=== PATIENT | female | born 1955 | race African-American/Black ===

== ENCOUNTER 2021-03-08 08:48 | Emergency (ER) | payer MEDICARE, OTHER ==
[~2021-03-08] VITALS: Ht 160 cm; Wt 71.0 kg
[2021-03-08] MEDS ORDERED: MORPHINE SULFATE 4 MG/ML CPJ (NOT FOR IM USE) IV STA (10:48)
[2021-03-08] MEDS ORDERED: MORPHINE SULFATE 2 MG/ML CPJ (NOT FOR IM USE) IV NR (11:15)
[2021-03-08 11:31] LABS: BASOPHILS % 0.6 % (0.0-2.0); EOSINOPHILS % 1.5 % (0.0-5.0); HEMOGLOBIN. 13.9 g/dL (12.0-16.0); LYMPHOCYTES % 20.3 % (20.0-50.0); MEAN CORPUSCULAR VOLUME 95.1 fL (81.0-99.0); MEAN PLATELET VOLUME 8.4 fl (7.4-10.4); MONOCYTES % 9.1 % (2.0-8.0); NEUTROPHILS % 68.5 % (40.0-76.0); PLATELET 322 x1000/uL (130-400); RED BLOOD CELL COUNT 4.21 mill/uL (4.2-5.4); RED CELL DISTRIBUTION WIDTH 13.6 % (11.6-14.6)
[2021-03-08 11:33] LABS: CLARITY URINE CLEAR (CLEAR); COLOR URINE YELLOW (YELLOW); KETONES URINE NEGATIVE (NEGATIVE); LEUKOCYTE ESTERASE URINE 1+ (NEGATIVE); NITRITE URINE NEGATIVE (NEGATIVE); OCCULT BLOOD URINE NEGATIVE (NEGATIVE); PROTEIN URINE NEGATIVE (NEGATIVE); SPECIFIC GRAVITY URINE 1.013 (1.005-1.030); UROBILINOGEN URINE 0.2 E.U./dL (0.2-1.0)
[2021-03-08 11:33] LABS: CHLORIDE 105 mEq/L (98-107)
[2021-03-08] MEDS ORDERED: AMOX-424 MT (12:09)
[2021-03-08 12:14] LABS: PROTHROMBIN TIME 10.9 sec (9.6-11.0)
[2021-03-08] MEDS ORDERED: TRAM50TA3 MT (12:49)
[2021-03-08 12:53] VITALS: BP 134/118
== END 2021-03-08 12:43 | disposition home or self-care (01) ==
LOC: ER 08:48
DX: K57.92 Diverticulitis of intestine, part unspecified, without perforation or abscess without bleeding (principal); L23.0 Allergic contact dermatitis due to metals
CPT/HCPCS: 36415; 74176; 80053; 81003; 83690; 85025; 85610; 96374; 99284; J2270

== ENCOUNTER 2021-03-20 13:52 | Emergency (ER) | payer MEDICARE ==
[~2021-03-20] VITALS: Ht 160 cm; Wt 71.0 kg
[~2021-03-20 13:52] MED LIST: AMOX-424 MT; TRAM50TA3 MT
[2021-03-20] MEDS ORDERED: KETOROLAC 60MG/2ML VIAL IM SCH (21:00)
[2021-03-20] MEDS ORDERED: SIMETHICONE 80MG TABLET CHEW PO PRN (21:15)
[2021-03-20] MEDS ORDERED: TRAMADOL 50MG TABLET PO ONE (22:00)
[2021-03-20 22:49] LABS: BASOPHILS % 1.2 % (0.0-2.0); EOSINOPHILS % 4.7 % (0.0-5.0); HEMATOCRIT. 35.7 % (36.0-48.0); HEMOGLOBIN. 12.8 g/dL (12.0-16.0); LYMPHOCYTES % 33.6 % (20.0-50.0); MEAN CORPUSCULAR HEMOGLOBIN 32.9 pg (28.0-32.0); MEAN CORPUSCULAR VOLUME 92.1 fL (81.0-99.0); MEAN PLATELET VOLUME 7.8 fl (7.4-10.4); MONOCYTES % 7.8 % (2.0-8.0); NEUTROPHILS % 52.7 % (40.0-76.0); PLATELET 360 x1000/uL (130-400); RED BLOOD CELL COUNT 3.87 mill/uL (4.2-5.4); RED CELL DISTRIBUTION WIDTH 13.8 % (11.6-14.6)
[2021-03-20] MEDS ORDERED: SIME80TA15 PO (23:23)
[2021-03-20] MEDS ORDERED: LEVO750T46 MT (23:23)
[2021-03-20] MEDS ORDERED: KETO10TA2 MT (23:23)
[2021-03-20 23:46] VITALS: BP 124/77
== END 2021-03-20 23:46 | disposition home or self-care (01) ==
LOC: ER 14:29
DX: R10.30 Lower abdominal pain, unspecified (principal); K57.90 Diverticulosis of intestine, part unspecified, without perforation or abscess without bleeding
CPT/HCPCS: 36415; 85025; 96372; 99283; J1885